=== PATIENT | female | born 1990 | race Caucasian/White ===

== ENCOUNTER 2024-12-01 16:21 | Emergency (ER) | payer OTHER, SELFPAY ==
[2024-12-01 16:28] VITALS: BP 153/98
[2024-12-01 17:05] LABS: Urine Albumin 1+ (Neg - Trace); Urine Bilirubin Negative (Negative); Urine Character Clear (Clear); Urine Color Yellow; Urine Glucose Negative (Negative); Urine Ketone Negative (Negative); Urine Leukocyte Negative (Negative); Urine Nitrite Negative (Negative); Urine Occult Blood 2+ (Negative); Urine Specific Gravity 1.015 (<1.030); Urine Urobilinogen Negative (Neg - 1+)
[2024-12-01 17:10] LABS: % Basophils 0.5 % (0-2); % Eosinophils 1.2 % (0-6); % Immature Granulocytes 0.2 % (0-0.5); % Lymphocytes 31.8 % (20.5-51.1); % Neutrophils 59.3 % (42.2-75.2); Absolute Eosinophils 0.1 10^3/uL (0-0.7); Absolute Lymphocytes 2.7 10^3/uL (1.2-3.4); Absolute Monocytes 0.6 10^3/uL (0.1-0.6); Absolute Neutrophils 5.1 10^3/uL (1.4-6.5); Hematocrit 38.6 % (37.0-47.0); Hemoglobin 12.7 g/dL (12.0-16.0); Mean Corp Hgb Conc. 32.9 g/dL (33.0-37.0); Mean Corpuscular Hgb 30.4 pg (27.0-31.0); Mean Corpuscular Volume 92.3 fL (81.0-99.0); Nucleated Red Blood Cells % 0 %; Red Blood Cell Count 4.18 10^6/uL (4.20-5.40); Red Cell Dist. Width 12.8 % (11.5-14.5); White Blood Cell Count 8.6 10^3/uL (4.8-10.8)
[2024-12-01 17:14] LABS: HCG, Serum Qualitative Screen Negative
[2024-12-01 17:15] LABS: Urine Squamous Cell >30 /LPF (Few)
[2024-12-01 17:16] LABS: Urine Mucus Many
[2024-12-01 17:18] LABS: ALT (SGPT) 13 U/L (0-35); AST (SGOT) 17 U/L (14-36); Albumin 4.8 g/dl (3.5-5.0); Alkaline Phosphatase 49 U/L (38-126); Blood Urea Nitrogen 13 mg/dl (7-17); Carbon Dioxide 22 mmol/L (22-30); Chloride 104 mmol/L (98-107); Glucose 93 mg/dl (70-99); Potassium 4.9 mmol/L (3.5-5.1); Sodium 139 mmol/L (135-145); Total Bilirubin 0.7 mg/dl (0.2-1.3); eGFR > 60.00
[2024-12-01 17:18] LABS: Urine Bacteria Few (Negative); Urine Red Blood Cell 0-2 /HPF (0-2); Urine White Cell 0-2 /HPF (0-5)
[2024-12-01 17:19] LABS: Lipase 46 U/L (23-300)
[2024-12-01 17:26] LABS: Platelet Count 192 10^3/uL (130-400)
[2024-12-01 17:49] LABS: TSH Reflex To Free T4 1.48 uIU/ml (0.47-4.68)
--- NOTE | 2024-12-01 18:39 | ED.GENMED ---
History of Present Illness
General
Chief Complaint: Abdominal Pain
Source: patient and spouse
Exam Limitations: none
Time Seen by Provider: 12/01/24 17:47
Nursing documentation reviewed up to this point in time: agreed with
History of Present Illness
History of Present Illness:
34-year-old female presents with abdominal pain mid lower right greater than left has some nausea vomiting yesterday, some diarrhea yesterday no fever has had some reflux for few months she had a gastric sleeve done, has not followed up with any
physicians because her surgeon is no longer practicing/close the office, also having palpitations for few months, she had her gallbladder out she has had oral surgery she has had tonsil surgery so still has her appendix never had a still
has her ovaries
Past History
Past History
ED Past Medical History: Other (Reflux)
ED Past Surgical History: Cholecystectomy and Other (Gastric sleeve)
Social History
Tobacco: Non-smoker
Alcohol: None
Drug: None
Personal:
Living: with family
Employment: Employed
Review of Systems
Review of Systems
All Other Systems: Not applicable
Constitutional: Denies fever or fatigue
EENT: Reports no symptoms
Respiratory: Reports no symptoms
Cardiac: Reports palpitations
ABD/GI: Reports abdominal pain, nausea and diarrhea
: Reports no symptoms; Denies flank pain or urgency
Musculoskeletal: Reports no symptoms
Skin: Reports no symptoms
Neurological: Reports no symptoms
Endocrine: Reports no symptoms
Phy Exam
Physical Exam
Physical Exam:
Physical Exam
General: no apparent distress, not acutely ill
Neck: No jaundice
Heart: s1/s2 regular rate and rhythm, no murmur. equal radial pulses.
Lungs: no acute respiratory distress. clear bilaterally
Abdomen: Obese tender in the right greater than left lower
Neuro: alert and oriented. no focal neurological deficits
Skin: no rash
Psychiatric: well kept. interactive and cooperative
Extremities: no edema.
Course
Orders/Labs/Results
Orders:
Orders
12/01/24 16:34
Electrocardiogram (*1) Urgent
Reason for Study: Palpitations
EKG- Treatment ONCE
Test Result ONCE
12/01/24 16:50
Complete Blood Count/With Diff Urgent
Urinalysis Reflex To Culture Urgent
Date Specimen was Collected: 12/01/24
Time Specimen was Collected: 16:34
Urine Microscopic Reflex Cult Urgent
12/01/24 16:51
Comprehensive Metabolic Panel Urgent
HCG, Serum Qualitative Screen Urgent
Lipase Urgent
TSH Reflex To Free T4 Urgent
12/01/24 18:20
Add On- LAB Urgent
Tests Added?: lipase
CT Abd/Pel (IV only)-DH only Urgent
Comment:
Reason For Exam: rlq pain
0.9% Sodium Chloride 1000 ml [Nss] 1,000 ml IV BOLUS
Ondansetron Injectable [Zofran] 4 mg IV NOW STA
Pantoprazole [Protonix IV] 40 mg IV NOW STA
Abnormal Lab Results
12/01/24
16:50
RBC 4.18 L 10^6/uL
(4.20-5.40)
MCHC 32.9 L g/dL
(33.0-37.0)
MPV 11.0 H fL
(7.4-10.4)
Ur Occult Blood Reflex 2+ A
(Negative)
Urine Bacteria (Reflex) Few A
(Negative)
Urine Albumin (Reflex) 1+ A
(Neg - Trace)
12/01/24 16:50
12/01/24 16:51
Vital Signs
Initial and Last Documented VS:
Initial Vital Signs
Temp Pulse Resp BP Pulse Ox
98.2 F 69 16 153/98 100
12/01/24 16:28 12/01/24 16:28 12/01/24 16:28 12/01/24 16:28 12/01/24 16:28
Last Documented Vital Signs
Temp Pulse Resp BP Pulse Ox
98.4 F 62 16 146/81 99
12/01/24 20:43 12/01/24 20:43 12/01/24 16:28 12/01/24 20:43 12/01/24 20:43
*Critical Care Note
Total Time (30-74mins, 75-104mins- exclusive of procedures): Not Applicable
Update Note
Update Note:
Update labs noted CT noted urine noted patient without any urinary symptoms
ED Attending Note
-
Portions of this chart may have been created with voice recognition software.� Occasional wrong word or��sound alike� substitutions may have occurred due to the inherent limitations of voice recognition software.
Discharge Plan
Departure
Patient Disposition: Home (Routine Discharge)
Date of Disposition: 12/01/24
Time of Disposition: 21:23
Patient with high blood pressure during this ER visit?: No
Condition: Good
Covid-19: Not Applicable
Discharge Problem:
Abdominal pain
Instructions: Abdominal Pain, Nausea and Vomiting, Adult (DC), Clear Liquid Diet, Diarrhea in teens and adults
Prescriptions:
New
dicyclomine 20 mg tablet
20 mg PO QID PRN (Reason: abdominal cramps) Qty: 14 0RF
ondansetron 4 mg tablet,disintegrating
4 mg PO Q8H PRN (Reason: nausea and vomiting) Qty: 14 0RF
No Action
omeprazole magnesium [Prilosec OTC] 20 mg Tablet,Delayed Release (Dr/Ec)
20 mg PO DAILY
Glp 1
50 mg SC WEEKLY
Referrals:
Bob Zhang, [Family Provider] - Next open appointment
Juan Suarez, DO [Active] - Next open appointment
Amelia Wilson, DO [Active] - Next open appointment
Activity Restrictions/Additional Instructions:
Plan diet nothing fatty or spicy, Zofran as needed for nausea vomiting, Bentyl as needed for abdominal cramping continue your acid [employer] medicine
Interventions
Interventions:
*Risk Screen - Suicide Last Done: 12/01/24 16:28
*General Assessment Last Done: 12/01/24 16:28
*Neglect/Abuse Screening Last Done: 12/01/24 21:02
*ED COVID-19 Vaccine History Last Done: 12/01/24 16:28
OS-Pjkccd-Oksfivgreu Assessment Last Done: 12/01/24 21:02
Discharge Date and Time
Print Language: UKRAINIAN
[2024-12-01] MEDS: PROTONIX IV 40 MG IV (18:44)
[2024-12-01] MEDS: ZOFRAN 4 MG IV (18:45)
[2024-12-01] MEDS: NSS 1000 IV (18:45)
[2024-12-01 20:43] VITALS: BP 146/81
== END 2024-12-01 21:42 | disposition home or self-care (01) ==
LOC: EMR 16:21
PROVIDERS: Emergency Medicine; EMERGENCY PHYSICIAN Emergency Medicine; FAMILY PHYSICIAN Family Medicine
DX: R10.9 Unspecified abdominal pain (principal)
CPT/HCPCS: 99285; 96374; 96375; 96361 ×2; 74177; 80053; 81003; 81015; 83690; 84443; 84703; 85025; 93005; Q9967